=== PATIENT | male | born 1945 | race Caucasian/White ===

== ENCOUNTER 2017-05-20 12:21 | Emergency (ER) | payer BC, OTHER ==
[~2017-05-20] VITALS: Ht 167.6 cm; Wt 90.0 kg
[2017-05-20 12:24] VITALS: Ht 167.6 cm; Wt 90.0 kg
--- NOTE | 2017-05-20 14:04 | RADRPT ---
PROCEDURE: XR Chest. CLINICAL INDICATION: Cough . Shortness of breath TECHNIQUE: Single frontal chest x-ray. COMPARISON: None. FINDINGS: The lungs are clear of acute infiltrates, edema, effusions, or masses. There are low lung volumes. C alcific atherosclerosis of the aorta is present.. The cardiomediastinal silhouette is unremarkable. The osseous structures are intact. IMPRESSION: No acute cardiopulmonary disease. RPTAT: AA .Tristan Bruce MD, MD Date Time Electronically viewed and signed by .Tristan Bruce MD, on 05/20/2017 14:03 .L/
[2017-05-20 14:10] LABS: BASOPHIL # 0.1 10^3/ul (0.0-0.1); BASOPHILS % 0.7 % (0.0-2.0); EOSINOPHILS # 0.2 10^3/ul (0.0-0.5); EOSINOPHILS % 1.7 % (0.0-7.0); HEMATOCRIT 31.9 % (42.0-52.0); HEMOGLOBIN 10.6 g/dl (14.0-18.0); LYMPHOCYTES # 2.6 10^3/ul (0.8-2.9); LYMPHOCYTES % 23.5 % (15.0-51.0); MEAN CORPUSCULAR HEMOGLOBIN 31.5 pg (29.0-33.0); MEAN CORPUSCULAR HGB CONC 33.2 g/dl (32.0-37.0); MEAN CORPUSCULAR VOLUME 94.9 fl (82.0-101.0); MEAN PLATELET VOLUME 10.2 fl (7.4-10.4); MONOCYTE # 0.8 10^3/ul (0.3-0.9); MONOCYTES % 7.5 % (0.0-11.0); NEUTROPHIL # 7.2 10^3/ul (1.6-7.5); NEUTROPHILS % 65.1 % (39.0-77.0); PLATELET COUNT 207 10^3/UL (140-415); RED BLOOD COUNT 3.36 10^6/ul (4.70-6.10); RED CELL DISTRIBUTION WIDTH 12.9 % (11.5-14.5)
--- NOTE | 2017-05-20 14:27 | ERD ---
ER Documentation Chief Complaint Chief Complaint COUGH WITH YELLOW PHLEGM X 1 WEEK HPI This is a 72-year-old male with a past medical history of diabetes who is presenting with 7-10 days of a productive cough of clear/yellow sputum, congestion, general fatigue. The patient does not endorse fever or chills. He does not endorse nausea or vomiting. He does not endorse chest pain or active shortness of breath. The patient states that he feels a little shortness of breath while he is coughing, but this improves once the coughing stops. The patient does not have any abdominal pain. He has no changes to bowel movements or urination. He has no focal weakness. He has had no changes to bowel movements or urination. The patient went to a doctor's appointment with his partner, and the primary doctor thought that he looked a little pale. He wanted the patient to come to the emergency department for blood work and x-ray imaging. The patient does not endorse any dizziness or lightheadedness or any episodes of feeling that he was going to pass out. ROS All systems reviewed and are negative except as per history of present illness. Allergies Allergies: Coded Allergies: No Known Allergy (Unverified , 05/20/17) PMhx/Soc History of Surgery: No Anesthesia Reaction: No Hx Neurological Disorder: No Hx Respiratory Disorders: No Hx Cardiac Disorders: No Hx Psychiatric Problems: No Hx Miscellaneous Medical Probl: Yes (DM) Hx Alcohol Use: No Hx Substance Use: No Hx Tobacco Use: No Smoking Status: Never smoker FmHx Family History: coronary disease (Father) Physical Exam Vitals Vital Signs Date Time Temp Pulse Resp B/P Pulse Ox O2 Delivery O2 Flow Rate FiO2 05/20/17 15:56 98.3 83 16 148/67 99 Room Air 05/20/17 12:24 99.8 89 18 148/71 98 Physical Exam Const: No apparent distress, well-developed, well-nourished Head: Atraumatic Eyes: Normal Conjunctiva. Extraocular movements intact. ENT: Normal External Ears, Nose and Mouth. Neck: Full range of motion. ~ No meningismus. Resp: Clear to auscultation bilaterally Cardio: Regular rate and rhythm, no murmurs Abd: Soft, non tender, non distended. Normal bowel sounds Skin: No petechiae or rashes Back: No midline or flank tenderness Ext: No cyanosis, or edema Neur: Awake and alert, oriented 4. Cranial nerves intact. No facial droop. Normal strength and sensation in all extremities. Coordination with finger to nose normal. Psych: Normal Mood and Affect Result Diagram: 05/20/17 1340 05/20/17 1340 Results 24 hrs Laboratory Tests Test 05/20/17 13:40 White Blood Count 11.010^3/ul Red Blood Count 3.3610^6/ul Hemoglobin 10.6g/dl Hematocrit 31.9% Mean Corpuscular Volume 94.9fl Mean Corpuscular Hemoglobin 31.5pg Mean Corpuscular Hemoglobin Concent 33.2g/dl Red Cell Distribution Width 12.9% Platelet Count 55778^3/UL Mean Platelet Volume 10.2fl Neutrophils % 65.1% Lymphocytes % 23.5% Monocytes % 7.5% Eosinophils % 1.7% Basophils % 0.7% Nucleated Red Blood Cells % 0.0/100WBC Neutrophils # 7.210^3/ul Lymphocytes # 2.610^3/ul Monocytes # 0.810^3/ul Eosinophils # 0.210^3/ul Basophils # 0.110^3/ul Nucleated Red Blood Cells # 0.010^3/ul Prothrombin Time 13.0Sec Prothrombin Time Ratio 1.0 INR International Normalized Ratio 0.98 Activated Partial Thromboplast Time 30.8Sec Sodium Level 142mmol/L Potassium Level 4.4mmol/L Chloride Level 105mmol/L Carbon Dioxide Level 24mmol/L Anion Gap 17 Blood Urea Nitrogen 8mg/dl Creatinine 1.33mg/dl Glucose Level 159mg/dl Calcium Level 9.0mg/dl Current Medications Medications (Trade) Dose Ordered Sig/Althea Route PRN Reason Start Time Stop Time Status Last Admin Dose Admin Sodium Chloride (NS) 1,000 ml @ 1,000 mls/hr Q1H ONCE IV 05/20/17 15:30 05/20/17 15:57 DC Procedures/MDM MDM Patient's presentation warrants further investigation. The patient could have an upper respiratory tract infection and is not outside the window that I would have strong consideration for bacterial infection. However, blood work and x- ray imaging will be obtained to evaluate for an infectious etiology. Metabolic etiology of his fatigue will also be evaluated for. An EKG will be completed as well. LABS The patient's blood work was obtained and reviewed. The patient seemed shows leukocytosis but no left shift. The patient is afebrile, and I do not suspect a systemic infection. The patient appear systemically ill. The patient does have a mild anemia today. There is a normocytic anemia. I do not feel that he requires emergent transfusion and may be evaluated as an outpatient. The patient's platelet count is unremarkable. The patient's CMP shows no signs of metabolic or electrolyte abnormality. The patient has normal hepatic function testing. The patient's renal function is decreased. This could be related to dehydration versus kidney disease associated with his diabetes. The patient will be notified of this and may follow-up as an outpatient as well. EKG EKG read by me: Rate/Rhythm: Regular rate and rhythm at a rate of 80 Intervals: Normal [place]: Normal Impression: No evidence of ischemia or arrhythmia IMAGING CXR FINDINGS: The lungs are clear of acute infiltrates, edema, effusions, or masses. There are low lung volumes. Calcific atherosclerosis of the aorta is present.. The cardiomediastinal silhouette is unremarkable. The osseous structures are intact. IMPRESSION: No acute cardiopulmonary disease. Electronically viewed and signed by .Tristan Bruce MD, MD on 05/20/2017 14:03 TREATMENT/DISPOSITION The patient was offered IV fluids in the emergency department but he declined. He actually feels well aside from his cough. It is possible that he has bronchitis. I do suspect a viral etiology, as his blood work and chest x-ray are reassuring. The patient does have a very mild leukocytosis but no left shift. I do suspect this is reactive. The patient's vital signs remained stable in the emergency department. He was stable for discharge. He will be given precautions with which to return to the emergency department. He also needs to follow-up with his primary care doctor in 2-3 days for reevaluation. His elevated creatinine was discussed. I do not have previous lab values to compare this to, but I do not feel that he requires admission for acute kidney injury. He may also follow-up for his mild anemia. Departure Diagnosis: Primary Impression: Cough Additional Impressions: Anemia Anemia type: unspecified type Qualified Code: D64.9 - Anemia, unspecified type Elevated serum creatinine Condition: PATRICK Boykin MD May 20, 2017 14:27
[2017-05-20 14:30] LABS: INR 0.98; PARTIAL THROMBOPLASTIN TIME 30.8 Sec (25.0-35.0)
[2017-05-20 14:44] LABS: CREATININE 1.33 mg/dl (0.61-1.24); POTASSIUM 4.4 mmol/L (3.5-5.1)
[2017-05-20] MEDS ORDERED: SOD CHLORIDE 0.9% 1,000 ML IV ONE (15:30)
[2017-05-20 15:56] VITALS: BP 148/67; PULSE 83; RESP 16; TEMP 98.3
== END 2017-05-20 15:57 | disposition home or self-care (01) ==
LOC: E/R 12:21
DX: D64.9 Anemia, unspecified (principal); R79.89 Other specified abnormal findings of blood chemistry; E11.9 Type 2 diabetes mellitus without complications; R07.9 Chest pain, unspecified
CPT/HCPCS: 71010; 80048; 85025; 85610; 85730; 93005; J7030; 36415